=== PATIENT | male | born 1985 ===

== ENCOUNTER → 2018-03-18 | Emergency (ER) | payer SELFPAY | END | disposition left against medical advice (07) | LOC: ER 16:38 | DX: F10.120 Alcohol abuse with intoxication, uncomplicated (principal); Z53.21 Procedure and treatment not carried out due to patient leaving prior to being seen by health care provider ==

== ENCOUNTER 2018-07-25 14:41 | Emergency (ER) | payer MEDICAID, OTHER ==
[~2018-07-25] VITALS: Ht 162.6 cm; Wt 81.6 kg
[2018-07-25] MEDS ORDERED: SODIUM CHLORIDE 0.9% 1,000 ML IV ONE (14:50)
[2018-07-25 15:01] VITALS: BP 152/88
[2018-07-25 16:21] LABS: Basophils # (auto) 0 uL; Basophils % (auto) 0.8 % (0.0-2.0); Eosinophils # (auto) 0 uL; Eosinophils % (auto) 0.7 % (0.0-7.0); Hematocrit 40.2 % (41.0-53.0); Hemoglobin 13.3 g/dL (13.5-17.5); Lymphocytes # (auto) 1.2 uL; Mean Corpuscular Hemoglobin 31.9 pg (28.0-32.0); Mean Corpuscular Hgb Conc. 33.1 g/dL (32.0-36.0); Mean Corpuscular Volume 96.2 fL (80.0-100.0); Monocytes # (auto) 0.2 uL; Monocytes % (auto) 4.6 % (0.0-12.0); Neutrophils # (auto) 3.4 uL; Neutrophils % (auto) 68.9 % (37.0-80.0); Nucleated Red Blood Cells % 0.1 %; Platelet Count (auto) 113 10^3/uL (140-450); Red Blood Cells 4.18 10^6/uL (4.5-5.90); Red Cell Distribution Width 15.7 % (11.8-14.3); White Blood Cell 4.9 10^3/uL (4.4-10.8)
[2018-07-25 16:35] LABS: BUN/Creatinine Ratio 10.9; Calcium 8.3 mg/dL (8.5-10.1); Potassium 3.7 mmol/L (3.5-5.1)
== END 2018-07-25 18:27 | disposition left against medical advice (07) ==
LOC: ER 14:41 → EDUNIT# 14:41 → EDBD 14:41 → ER 18:27
DX: S43.102A Unspecified dislocation of left acromioclavicular joint, initial encounter (principal); F10.20 Alcohol dependence, uncomplicated; Z53.29 Procedure and treatment not carried out because of patient's decision for other reasons; W18.39XA Other fall on same level, initial encounter; Y93.89 Activity, other specified; Y99.8 Other external cause status; Y92.89 Other specified places as the place of occurrence of the external cause
CPT/HCPCS: 29105; 36415; 73030; 80048; 80320; 85025